=== PATIENT | male | born 1945 | race Caucasian/White ===

== ENCOUNTER 2016-06-23 13:35 | Emergency (ER) | payer OTHER, BC ==
[~2016-06-23] VITALS: Ht 175.3 cm; Wt 74.3 kg
[~2016-06-23 13:35] MED LIST: MIRALAX17 GM PO; MIRALAX255 GM PO; OXAYDO5 MG PO; TAMSULOSIN HCL0.4 MG PO; TYLENOL EXTRA500 MG PO
[2016-06-23 14:32] LABS: HEMATOCRIT 37.5 % (38.0-50.0); MCH 28.5 PG (29.0-34.0); MCHC 33.6 G/DL (30.0-36.0); MCV 84.8 FL (86-99); PLATELET COUNT 254 K/uL (156-360); RBC DIS.WIDTH-CV 12.5 % (11.8-14.6); RBC DIS.WIDTH-SD 38.3 % (39-53); RED BLOOD COUNT 4.42 M/uL (4.00-5.50); WHITE BLOOD COUNT 4.4 K/uL (4.1-10.2)
[2016-06-23 14:44] LABS: CHLORIDE 108 mEq/L (99-109); POTASSIUM 4.2 mEq/L (3.7-5.4); SODIUM 139 mEq/L (136-147)
[2016-06-23 14:47] LABS: GLUCOSE 165 mg/dL (70-99)
[2016-06-23 14:48] LABS: ANION GAP 7 MEQ/L (2-14)
[2016-06-23 14:49] LABS: TOTAL BILIRUBIN 0.7 mg/dL (0.0-1.0)
[2016-06-23 14:50] LABS: ALKALINE PHOSPHATASE 88 IU/L (3-129); GFR ESTIMATE (CALCULATED) > 59 mL/min/
[2016-06-23 14:51] LABS: UREA NITROGEN (BUN) 16 mg/dL (9-23)
[2016-06-23 16:37] LABS: ADD MIUA? NO; BILIRUBIN NEGATIVE; BLOOD NEGATIVE; COLOR YELLOW ((YELLOW)); GLUCOSE (STRIP) NEGATIVE; KETONES NEGATIVE; LEUKOCYTES NEGATIVE; NITRITE NEGATIVE; PROTEIN (STRIP) NEGATIVE; SPECIFIC GRAVITY 1.021 (1.000-1.030); UROBILINOGEN 0.2 MG/DL (0.2-1.0)
[2016-06-23] MEDS ORDERED: COLACE100 MG PO (18:56)
[2016-06-23] MEDS ORDERED: SENNA-EXTRA17.2 MG PO (18:56)
[2016-06-23 19:30] VITALS: BP 121/81
== END 2016-06-23 19:31 | disposition home or self-care (01) ==
LOC: EME 13:35
PROVIDERS: Nurse Practitioner Family
DX: K59.00 Constipation, unspecified (principal); R11.0 Nausea; Z85.038 Personal history of other malignant neoplasm of large intestine; Z87.891 Personal history of nicotine dependence
CPT/HCPCS: 74177; 80053; 81003; 85027; 99281; 99285; J2270; J2405; J7030

== ENCOUNTER 2016-07-02 11:12 | Day surgery (SDC) | payer OTHER, BC ==
[~2016-07-02] VITALS: Ht 175.3 cm; Wt 77.1 kg
[~2016-07-02 11:12] MED LIST changes: +COLACE100 MG PO; +SENNA-EXTRA17.2 MG PO
[2016-07-02 12:15] VITALS: BP 131/73
[2016-07-02] MEDS ORDERED: HYDROCODON-ACE1 EAC7 PO (14:47)
[2016-07-02 15:30] VITALS: BP 131/73
[2016-07-02 16:25] VITALS: BP 121/64
== END 2016-07-02 16:40 | disposition home or self-care (01) ==
LOC: SDC 11:12
PROC: 0D7P8ZZ Dilation of Rectum, Via Natural or Artificial Opening Endoscopic (ICD-10-PCS; principal; 2016-07-02)
DX: K62.4 Stenosis of anus and rectum (principal); Z85.038 Personal history of other malignant neoplasm of large intestine; Z92.3 Personal history of irradiation; Z87.891 Personal history of nicotine dependence; Z92.21 Personal history of antineoplastic chemotherapy; Z88.0 Allergy status to penicillin
CPT/HCPCS: J3010; J7120

== ENCOUNTER 2016-08-15 07:41 | Day surgery (SDC) | payer OTHER, BC ==
[~2016-08-15] VITALS: Ht 175.3 cm; Wt 76.0 kg
[~2016-08-15 07:41] MED LIST changes: +HYDROCODON-ACE1 EAC7 PO
[2016-08-15 08:33] VITALS: BP 137/84
[2016-08-15] MEDS ORDERED: OXYCODONE HCL5 MG PO (11:55)
[2016-08-15 12:25] VITALS: BP 136/77
[2016-08-15 13:24] VITALS: BP 142/68
== END 2016-08-15 13:31 | disposition home or self-care (01) ==
LOC: SDC 07:41
PROC: 0D7P8ZZ Dilation of Rectum, Via Natural or Artificial Opening Endoscopic (ICD-10-PCS; principal; 2016-08-15)
DX: K56.69 Other intestinal obstruction (principal); Z85.038 Personal history of other malignant neoplasm of large intestine; K91.89 Other postprocedural complications and disorders of digestive system; Z92.3 Personal history of irradiation; Z92.21 Personal history of antineoplastic chemotherapy; Z88.0 Allergy status to penicillin
CPT/HCPCS: J2250; J2405; J3010; J7120; S0020

== ENCOUNTER 2017-01-04 06:38 | Day surgery (SDC) | payer OTHER, BC ==
[~2017-01-04] VITALS: Ht 175.3 cm; Wt 73.5 kg
[~2017-01-04 06:38] MED LIST changes: +OXYCODONE HCL5 MG PO
[2017-01-04 07:08] VITALS: BP 154/75
[2017-01-04] MEDS ORDERED: OXAYDO5 MG PO (10:01)
[2017-01-04 10:34] VITALS: BP 141/73
== END 2017-01-04 11:05 | disposition home or self-care (01) ==
LOC: SDC 06:38
DX: K56.699 Other intestinal obstruction unspecified as to partial versus complete obstruction (principal); K59.02 Outlet dysfunction constipation; N40.0 Benign prostatic hyperplasia without lower urinary tract symptoms; Z92.3 Personal history of irradiation; Z85.048 Personal history of other malignant neoplasm of rectum, rectosigmoid junction, and anus; Z88.0 Allergy status to penicillin; Z87.891 Personal history of nicotine dependence; Z92.21 Personal history of antineoplastic chemotherapy
CPT/HCPCS: 87641; J2250; J2405; J3010; S0020

== ENCOUNTER 2017-01-08 08:48 | Inpatient (IN) | payer OTHER, BC ==
[~2017-01-08] VITALS: Ht 175.3 cm; Wt 72.2 kg
[2017-01-08 09:35] LABS: HEMATOCRIT 40.2 % (38.0-50.0); MCH 29.2 PG (29.0-34.0); MCHC 34.1 G/DL (30.0-36.0); MCV 85.7 FL (86-99); MEAN PLAT.VOLUME 8.9 uM^3 (9.0-12.4); PLATELET COUNT 228 K/uL (156-360); RBC DIS.WIDTH-CV 12.3 % (11.8-14.6); RBC DIS.WIDTH-SD 38.3 % (39-53); RED BLOOD COUNT 4.69 M/uL (4.00-5.50); WHITE BLOOD COUNT 4.3 K/uL (4.1-10.2)
[2017-01-08 09:44] LABS: CHLORIDE 103 mEq/L (99-109); SODIUM 140 mEq/L (136-147)
[2017-01-08 09:46] LABS: GLUCOSE 114 mg/dL (70-99)
[2017-01-08 09:47] LABS: ANION GAP 12 MEQ/L (2-14)
[2017-01-08 09:50] LABS: ALKALINE PHOSPHATASE 114 IU/L (3-129); GFR ESTIMATE (CALCULATED) > 59 mL/min/
[2017-01-08 09:51] LABS: UREA NITROGEN (BUN) 13 mg/dL (9-23)
[2017-01-08 09:52] LABS: DIRECT BILIRUBIN 0.3 mg/dL (0.0-0.3)
[2017-01-08 09:53] LABS: LIPASE 28 U/L (1.0-51.0)
[2017-01-08 16:00] VITALS: BP 142/70
[2017-01-08 16:30] VITALS: BP 135/76
[2017-01-09 00:05] VITALS: BP 116/54
[2017-01-09 07:15] VITALS: BP 136/60
[2017-01-09 16:00] VITALS: BP 146/81
[2017-01-09 23:24] VITALS: BP 134/73
[2017-01-10 03:47] VITALS: BP 138/63
[2017-01-10 05:58] LABS: MCH 29.6 PG (29.0-34.0); MCHC 34.3 G/DL (30.0-36.0); MCV 86.2 FL (86-99); MEAN PLAT.VOLUME 9.2 uM^3 (9.0-12.4); PLATELET COUNT 221 K/uL (156-360); RBC DIS.WIDTH-CV 12.3 % (11.8-14.6); RBC DIS.WIDTH-SD 38.5 % (39-53); RED BLOOD COUNT 4.29 M/uL (4.00-5.50); WHITE BLOOD COUNT 3.1 K/uL (4.1-10.2)
[2017-01-10 06:27] LABS: ANION GAP 5 MEQ/L (2-14); CHLORIDE 107 MEQ/L (99-109); GFR ESTIMATE (CALCULATED) > 59 mL/min/; GLUCOSE 111 mg/dL (70-99); POTASSIUM 4.2 MEQ/L (3.7-5.4); SAMPLE HEMOLYSIS CHECK 0; SAMPLE ICTERIC CHECK 0; SAMPLE LIPEMIA CHECK 0; SODIUM 139 MEQ/L (136-147); UREA NITROGEN (BUN) 9 mg/dL (9-23)
[2017-01-10 16:52] VITALS: BP 142/72
[2017-01-10 19:02] VITALS: BP 146/67
[2017-01-10 23:22] VITALS: BP 130/69
[2017-01-11] VITALS (7 sets, daily range): BP systolic 120–161; BP diastolic 63–77
[2017-01-11 05:26] LABS: HEMATOCRIT 32.7 % (38.0-50.0); MCH 29.7 PG (29.0-34.0); MCHC 34.6 G/DL (30.0-36.0); MCV 85.8 FL (86-99); MEAN PLAT.VOLUME 9.2 uM^3 (9.0-12.4); PLATELET COUNT 197 K/uL (156-360); RBC DIS.WIDTH-CV 12.2 % (11.8-14.6); RBC DIS.WIDTH-SD 38.4 % (39-53); RED BLOOD COUNT 3.81 M/uL (4.00-5.50); WHITE BLOOD COUNT 7.6 K/uL (4.1-10.2)
[2017-01-11 05:48] LABS: ANION GAP 6 MEQ/L (2-14); CHLORIDE 104 MEQ/L (99-109); GFR ESTIMATE (CALCULATED) > 59 mL/min/; GLUCOSE 154 mg/dL (70-99); POTASSIUM 4.8 MEQ/L (3.7-5.4); SAMPLE HEMOLYSIS CHECK 0; SAMPLE ICTERIC CHECK 0; SAMPLE LIPEMIA CHECK 0; SODIUM 135 MEQ/L (136-147); UREA NITROGEN (BUN) 11 mg/dL (9-23)
[2017-01-12] VITALS (7 sets, daily range): BP systolic 148–192; BP diastolic 75–98
[2017-01-12 05:54] LABS: HEMATOCRIT 32.4 % (38.0-50.0); MCH 28.6 PG (29.0-34.0); MCHC 33.3 G/DL (30.0-36.0); MCV 85.7 FL (86-99); MEAN PLAT.VOLUME 9.4 uM^3 (9.0-12.4); PLATELET COUNT 199 K/uL (156-360); RBC DIS.WIDTH-CV 12.5 % (11.8-14.6); RBC DIS.WIDTH-SD 39.3 % (39-53); RED BLOOD COUNT 3.78 M/uL (4.00-5.50); WHITE BLOOD COUNT 6.3 K/uL (4.1-10.2)
[2017-01-12 06:30] LABS: ANION GAP 6 MEQ/L (2-14); CHLORIDE 106 MEQ/L (99-109); GFR ESTIMATE (CALCULATED) > 59 mL/min/; GLUCOSE 126 mg/dL (70-99); POTASSIUM 4.3 MEQ/L (3.7-5.4); SAMPLE HEMOLYSIS CHECK 0; SAMPLE ICTERIC CHECK 0; SAMPLE LIPEMIA CHECK 0; SODIUM 137 MEQ/L (136-147); UREA NITROGEN (BUN) 10 mg/dL (9-23)
[2017-01-13 00:34] VITALS: BP 154/78
[2017-01-13 06:23] LABS: HEMATOCRIT 35.3 % (38.0-50.0); MCH 28.7 PG (29.0-34.0); MCHC 33.1 G/DL (30.0-36.0); MCV 86.7 FL (86-99); MEAN PLAT.VOLUME 9.1 uM^3 (9.0-12.4); PLATELET COUNT 194 K/uL (156-360); RBC DIS.WIDTH-SD 38.6 % (39-53); RED BLOOD COUNT 4.07 M/uL (4.00-5.50); WHITE BLOOD COUNT 6.2 K/uL (4.1-10.2)
[2017-01-13 06:41] LABS: ANION GAP 10 MEQ/L (2-14); CHLORIDE 100 MEQ/L (99-109); GFR ESTIMATE (CALCULATED) > 59 mL/min/; GLUCOSE 134 mg/dL (70-99); SAMPLE HEMOLYSIS CHECK 0; SAMPLE ICTERIC CHECK 0; SAMPLE LIPEMIA CHECK 0; SODIUM 133 MEQ/L (136-147); UREA NITROGEN (BUN) 7 mg/dL (9-23)
[2017-01-13 07:24] VITALS: BP 208/110
[2017-01-13 11:10] VITALS: BP 162/89
[2017-01-13 15:31] VITALS: BP 171/83
[2017-01-14 00:45] VITALS: BP 159/76
[2017-01-14 06:33] LABS: HEMATOCRIT 31.7 % (38.0-50.0); MCH 28.2 PG (29.0-34.0); MCHC 33.8 G/DL (30.0-36.0); MCV 83.6 FL (86-99); MEAN PLAT.VOLUME 8.7 uM^3 (9.0-12.4); PLATELET COUNT 207 K/uL (156-360); RBC DIS.WIDTH-CV 12.1 % (11.8-14.6); RED BLOOD COUNT 3.79 M/uL (4.00-5.50)
[2017-01-14 06:58] LABS: ANION GAP 7 MEQ/L (2-14); CHLORIDE 102 MEQ/L (99-109); GFR ESTIMATE (CALCULATED) > 59 mL/min/; GLUCOSE 116 mg/dL (70-99); POTASSIUM 3.9 MEQ/L (3.7-5.4); SAMPLE HEMOLYSIS CHECK 0; SAMPLE ICTERIC CHECK 0; SAMPLE LIPEMIA CHECK 0; SODIUM 136 MEQ/L (136-147); UREA NITROGEN (BUN) 10 mg/dL (9-23)
[2017-01-14 07:30] VITALS: BP 161/82
[2017-01-14 15:30] VITALS: BP 167/74
[2017-01-14 23:49] VITALS: BP 161/74
[2017-01-15 04:13] VITALS: BP 156/86
[2017-01-15 06:34] VITALS: BP 143/90
[2017-01-15 06:49] LABS: HEMATOCRIT 30.3 % (38.0-50.0); MCH 29.2 PG (29.0-34.0); MCHC 34.7 G/DL (30.0-36.0); MCV 84.2 FL (86-99); MEAN PLAT.VOLUME 8.7 uM^3 (9.0-12.4); PLATELET COUNT 207 K/uL (156-360); WHITE BLOOD COUNT 4.9 K/uL (4.1-10.2)
[2017-01-15 07:15] LABS: ANION GAP 10 MEQ/L (2-14); CHLORIDE 101 MEQ/L (99-109); GFR ESTIMATE (CALCULATED) > 59 mL/min/; GLUCOSE 125 mg/dL (70-99); POTASSIUM 4.2 MEQ/L (3.7-5.4); SAMPLE HEMOLYSIS CHECK 1; SAMPLE ICTERIC CHECK 0; SAMPLE LIPEMIA CHECK 0; SODIUM 136 MEQ/L (136-147); UREA NITROGEN (BUN) 9 mg/dL (9-23)
[2017-01-15 11:10] VITALS: BP 183/95
[2017-01-15 14:57] VITALS: BP 181/87
[2017-01-16 00:02] VITALS: BP 142/69
[2017-01-16 07:26] VITALS: BP 152/75
[2017-01-16 10:27] VITALS: BP 176/80
[2017-01-16 14:56] VITALS: BP 135/73
[2017-01-16 23:25] VITALS: BP 133/73
[2017-01-17 08:02] VITALS: BP 159/79
[2017-01-17] MEDS ORDERED: HYDROCODON-ACE1 EAC7 PO (10:13)
[2017-01-17] MEDS ORDERED: CLONIDINE1 EAC1 TD (10:13)
[2017-01-17] MEDS ORDERED: LEVAQUIN750 MG PO (10:13)
[2017-01-17] MEDS ORDERED: ADULT FOLDING1 EACH MC (10:14)
== END 2017-01-17 13:03 | disposition home health service (06) | DRG 330 ==
LOC: EME 08:48 → 5EAST 11:37 → EDOF 11:37 → ENRESERV 12:25 → 5EAST 14:17 → ENRESERV 01-13 12:56 → 5EAST 01-13 13:57 → ENPENDDIS 01-17 → 5EAST 01-17 13:03
PROVIDERS: Emergency Medicine; Surgery
DX: K91.89 Other postprocedural complications and disorders of digestive system (principal); K56.699 Other intestinal obstruction unspecified as to partial versus complete obstruction; N13.1 Hydronephrosis with ureteral stricture, not elsewhere classified; K66.0 Peritoneal adhesions (postprocedural) (postinfection); L59.8 Other specified disorders of the skin and subcutaneous tissue related to radiation; Y84.2 Radiological procedure and radiotherapy as the cause of abnormal reaction of the patient, or of later complication, without mention of misadventure at the time of the procedure; K56.7 Ileus, unspecified; L76.34 Postprocedural seroma of skin and subcutaneous tissue following other procedure; R31.9 Hematuria, unspecified; N40.0 Benign prostatic hyperplasia without lower urinary tract symptoms; I10 Essential (primary) hypertension; N32.81 Overactive bladder; K43.2 Incisional hernia without obstruction or gangrene; Z87.891 Personal history of nicotine dependence; Z90.49 Acquired absence of other specified parts of digestive tract; Z88.0 Allergy status to penicillin; Z85.048 Personal history of other malignant neoplasm of rectum, rectosigmoid junction, and anus; Z95.1 Presence of aortocoronary bypass graft
CPT/HCPCS: 71020; 80048; 80076; 83690; 85027; 86850; 86900; 86901; 87070; 87075; 87076; 87185; 87205; 88307; 93005; 99281; 99285; C1758; C1769; J0330; J0360; J0690; J1100; J1170; J1650; J1956; J2001; J2250; J2405; J2710; J2765; J2795; J3010; J3475; J7030; J7050; P9045; S0020